=== PATIENT | male | born 1930 | race Caucasian/White ===

== ENCOUNTER 2016-10-31 00:41 | Observation (INO) | payer OTHER, BC ==
[~2016-10-31] VITALS: Ht 172.7 cm; Wt 61.9 kg
--- NOTE | 2016-10-31 01:03 | EMERGENCY ROOM VISIT NOTE ---
History Report prepared by Jeffrey: Lenard Montejo Under the Supervision of: Dr. Joan Lemon D.O. First contact with patient: 00:47 Stated Complaint: BRADYCARDIA History of Present Illness The patient is an 86 year old male who presents to the Emergency Room after a fall that occurred prior to arrival at [facility]. EMS states that patient fell at [facility] and was found on his knees. The patient reports that he is not in any pain. He denies hitting his head and feeling weak. The patient notes that he does not know how he fell. The patient's medical records states that he was seen at [facility] because he developed right-sided weakness, right-sided facial droop, and dysarthria. They report that patient was administered t-PA, and went into atrial fibrillation. Records note that he was put on Coumadin, and his INR today was 1.57. HPI is limited secondary to the patient's dysarthria. Source of History: patient, transfer records History Limited By: other (dysarthria) Review of Systems ROS is limited secondary to the patient's dysarthria. Past Medical & Surgical Medical Problems: (1) CAD (coronary artery disease) (2) CHF (congestive heart failure) (3) HTN (hypertension) (4) Hx-TIA (transient ischemic attack) (5) Ischemic cardiomyopathy (6) Peripheral vascular disease Surgical Problems: (1) S/P CABG x 3 Family History Patient reports no known family medical history. Social History Housing Status: assisted living Current/Historical Medications Scheduled Atorvastatin (Lipitor), 40 MG PO DAILY Enoxaparin (Lovenox), 60 MG SQ Q12H Fluoxetine Hcl (Pmdd) (Fluoxetine), 20 MG PO DAILY Metoprolol Succ (Toprol Xl) (Toprol-Xl), 25 MG PO BID Nitroglycerin (Nitrostat), 0.4 MG UT PRN Warfarin Sod (Coumadin), 5 MG PO DAILY Allergies Coded Allergies: No Known Allergies (Unverified , 10/31/16) Physical Exam Vital Signs Date Time Temp Pulse Resp B/P (MAP) Pulse Ox O2 Delivery O2 Flow Rate FiO2 10/31/16 05:30 51 18 144/73 92 Room Air 10/31/16 04:51 50 10/31/16 04:47 50 18 144/71 99 Room Air 10/31/16 04:16 50 18 156/80 98 Room Air 10/31/16 03:31 48 18 129/72 94 Room Air 10/31/16 02:39 51 18 147/72 99 Room Air 10/31/16 02:11 49 18 150/79 96 Room Air 10/31/16 01:42 60 18 136/72 93 Room Air 10/31/16 01:16 58 18 153/83 94 Room Air 10/31/16 01:02 52 10/31/16 00:45 94 Room Air 10/31/16 00:45 37.5 52 24 147/58 94 Room Air 10/31/16 00:45 94 Room Air Physical Exam HEENT: Head - normocephalic and atraumatic. Pupils are equal, round, and reactive to light. Extraocular eye muscles are intact and sclera are anicteric. Ears - bilaterally patent canals with noninjected tympanic membranes and no evidence of hemotympanum. Nose - moist nasal mucosa without discharge. Mouth - moist buccal mucosa. Oropharynx is nonerythematous and there is no tonsillar exudate or edema noted. Neck: Supple; no JVD, nuchal rigidity, cervical lymphadenopathy, or auscultated bruits. Heart: Bradycardic rate and irregular rhythm. There is a normal S1 and S2 with no murmurs, clicks, or gallops appreciated. Lungs: Clear to auscultation bilaterally with no wheezes, rales, or rhonchi. Abdomen: Soft, completely nontender, nondistended, with good bowel sounds. There are no palpable pulsatile masses or hepatosplenomegaly. There is no guarding, rigidity, or rebound noted. Extremities: No evidence of cyanosis, clubbing, or edema. There are easily palpable peripheral pulses. Neuro: Alert and oriented. Easily able to nod yes or no. At times, gives the appropriate one word answer. 5/5 in the upper left extremity, 2/5 in the left lower extremity, 0/5 in right upper and lower extremities. Medical Decision & Procedures ER Provider Diagnostic Interpretation: X-ray results as stated below per interpretation by me: Portable view one chest X-ray: diffuse pulmovascular congestion Laboratory Results 10/31/16 01:12 Red Blood Count 3.72, Mean Corpuscular Volume 92.2, Mean Corpuscular Hemoglobin 31.5, Mean Corpuscular Hemoglobin Concent 34.1, Mean Platelet Volume 9.4, Neutrophils (%) (Auto) 69.1, Lymphocytes (%) (Auto) 13.3, Monocytes (%) (Auto) 13.4, Eosinophils (%) (Auto) 3.2, Basophils (%) (Auto) 0.2, Neutrophils # (Auto ) 7.73, Lymphocytes # (Auto) 1.49, Monocytes # (Auto) 1.50, Eosinophils # (Auto ) 0.36, Basophils # (Auto) 0.02 10/31/16 01:12 Test 10/31/16 01:12 White Blood Count 11.19 K/uL (4.8-10.8) Red Blood Count 3.72 M/uL (4.7-6.1) Hemoglobin 11.7 g/dL (14.0-18.0) Hematocrit 34.3 % (42-52) Mean Corpuscular Volume 92.2 fL (80-100) Mean Corpuscular Hemoglobin 31.5 pg (25-34) Mean Corpuscular Hemoglobin Concent 34.1 g/dl (32-36) Platelet Count 253 K/uL (130-400) Mean Platelet Volume 9.4 fL (7.4-10.4) Neutrophils (%) (Auto) 69.1 % Lymphocytes (%) (Auto) 13.3 % Monocytes (%) (Auto) 13.4 % Eosinophils (%) (Auto) 3.2 % Basophils (%) (Auto) 0.2 % Neutrophils # (Auto) 7.73 K/uL (1.4-6.5) Lymphocytes # (Auto) 1.49 K/uL (1.2-3.4) Monocytes # (Auto) 1.50 K/uL (0.11-0.59) Eosinophils # (Auto) 0.36 K/uL (0-0.5) Basophils # (Auto) 0.02 K/uL (0-0.2) RDW Standard Deviation 44.7 fL (36.4-46.3) RDW Coefficient of Variation 13.3 % (11.5-14.5) Immature Granulocyte % (Auto) 0.8 % Immature Granulocyte # (Auto) 0.09 K/uL (0.00-0.02) Prothrombin Time 23.4 SECONDS (9.0-12.0) Prothromb Time International Ratio 2.1 (0.9-1.1) Activated Partial Thromboplast Time 34.8 SECONDS (21.0-31.0) Partial Thromboplastin Ratio 1.3 Anion Gap 5.0 mmol/L (3-11) Estimated GFR () 69.1 Estimated GFR (Non- 59.6 BUN/Creatinine Ratio 31.8 (10-20) Calcium Level 8.8 mg/dl (8.5-10.1) Magnesium Level 2.0 mg/dl (1.8-2.4) Total Bilirubin 0.3 mg/dl (0.2-1) Direct Bilirubin < 0.1 mg/dl (0-0.2) Aspartate Amino Transf (AST/SGOT) 23 U/L (15-37) Alanine Aminotransferase (ALT/SGPT) 35 U/L (12-78) Alkaline Phosphatase 73 U/L (45-117) Total Creatine Kinase 40 U/L (39-308) Creatine Kinase MB 0.7 ng/ml (0.5-3.6) Creatine Kinase MB Ratio 1.7 (0-3.0) Total Protein 5.7 gm/dl (6.4-8.2) Albumin 2.4 gm/dl (3.4-5.0) Thyroid Stimulating Hormone (TSH) 2.320 uIu/ml (0.300-4.500) Laboratory results per my review. ECG Indication: bradycardia Rate (beats per minute): 52 Rhythm: sinus bradycardia Findings: PVC, T-wave inversion (Inferior and Lateral) ED Course 0051: The patient was evaluated in room B07. A complete history and physical examination were performed. Nursing notes and previous medical records from [facility] were reviewed. IV lock was established and labs were drawn as above. A twelve-lead EKG was obtained. The patient was observing the technical engineer and pulse oximeter. 0223: I attempted to reevaluate the patient, but he was asleep. 0318: I discussed the patient's case [facility] Swanson[facility] The patient will be evaluated for further treatment and management. 0329: Upon reevaluation, I discussed findings and results with him. He comprehends what I am telling him by nodding. Medical Decision The patient is an 86 year old male who presents to the ED after a fall. Differential diagnosis includes symptomatic bradycardia, cardiac dysrhythmia, trauma, hypoglycemia, electrolyte imbalance. Labs results show: WBC of 11.1, hemoglobin of 11.7, BUN of 35, creatinine of 1.1 , normal glucose, normal LFTs, troponin of 0.061, INR of 2.1 The patient was noted be significantly bradycardic. Since he is hemiparetic on the right side, it is unlikely that he got out of bed to walk but most likely slid out of bed to the ground. He had no obvious signs of trauma. I [facility] and [facility] will evaluate for further management. Medication Reconcilliation Current Medication List: was personally reviewed by me Blood Pressure Screening Patient's blood pressure: Elevated blood pressure Monitored by inpatient care. Consults Time Called: [phone] Consulting Physician: Dr. Swanson [facility] Returned Call: [phone] I discussed the patient's case with Dr[facility] Swanson [facility] The patient will be evaluated for further treatment and management. Impression Primary Impression: Bradycardia Additional Impression: Accident due to mechanical fall without injury Scribe Attestation The scribe's documentation has been prepared under my direction and personally reviewed by me in its entirety. I confirm that the note above accurately reflects all work, treatment, procedures, and medical decision making performed by me. Departure Information Dispostion Being Evaluated By Hospitalist Referrals [facility] (PCP) Problem Qualifiers
[2016-10-31 01:26] LABS: BASO % 0.2 %; BASO ABS # 0.02 K/uL (0-0.2); COMPLETE YES; EOS % 3.2 %; HEMATOCRIT 34.3 % (42-52); IG% 0.8 %; LYMPH % 13.3 %; LYMPH ABS # 1.49 K/uL (1.2-3.4); MEAN CELL VOLUME 92.2 fL (80-100); MEAN CORPUSCULAR HEMOGLOBIN 31.5 pg (25-34); MEAN CORPUSCULAR HGB CONC 34.1 g/dl (32-36); MEAN PLATELET VOLUME 9.4 fL (7.4-10.4); MONO % 13.4 %; NEUT % 69.1 %; PLATELET COUNT 253 K/uL (130-400); RED BLOOD COUNT 3.72 M/uL (4.7-6.1); WHITE BLOOD COUNT 11.19 K/uL (4.8-10.8)
[2016-10-31 01:36] LABS: INR 2.1 (0.9-1.1); PARTIAL THROMBOPLASTIN RATIO 1.3; PROTHROMBIN TIME (PATIENT) 23.4 SECONDS (9.0-12.0)
[2016-10-31 01:45] LABS: BLOOD UREA NITROGEN 35 mg/dl (7-18); GLUCOSE 93 mg/dl (70-99)
[2016-10-31 01:46] LABS: ALT/SGPT 35 U/L (12-78); AST/SGOT 23 U/L (15-37); BUN/CREATININE RATIO 31.8 (10-20); CALCIUM 8.8 mg/dl (8.5-10.1); CARBON DIOXIDE 27 mmol/L (21-32); CHLORIDE 111 mmol/L (98-107); POTASSIUM 4.1 mmol/L (3.5-5.1); SODIUM 143 mmol/L (136-145)
[2016-10-31 01:57] LABS: ALKALINE PHOSPHATASE 73 U/L (45-117); CKMB/CK RATIO 1.7 (0-3.0)
[2016-10-31] MEDS ORDERED: CMD5 PO (02:02)
[2016-10-31] MEDS ORDERED: METO25TA3 PO (02:15)
[2016-10-31] MEDS ORDERED: FLUO20CA20 PO (02:17)
[2016-10-31] MEDS ORDERED: ATOR-24 PO (02:18)
[2016-10-31] MEDS ORDERED: ENOX60IN SQ (02:19)
[2016-10-31] MEDS ORDERED: NTRGSL/4 UT (02:21)
[2016-10-31] MEDS ORDERED: HYDROmorphone INJ 0.5 MG/0.5 ML SYR IV PRN (06:30)
[2016-10-31] MEDS ORDERED: ACETAMINOPHEN 325 MG TAB PO PRN (06:30)
[2016-10-31] MEDS ORDERED: ONDANSETRON INJ 2 MG/ML 2 ML VIAL IV PRN (06:30)
[2016-10-31] MEDS ORDERED: NITROGLYCERIN 0.4 MG SL PER TAB CHARGE SL PRN (06:30)
[2016-10-31] MEDS ORDERED: OXYCODONE/ACETAMINOPHEN 5-325 TAB PO PRN (06:30)
[2016-10-31 06:33] VITALS: O2SAT 94
[2016-10-31 06:44] VITALS: BP 116/48; PULSE 52; TEMP 36.9; O2SAT 97; Ht 172.7 cm; Wt 61.9 kg
--- NOTE | 2016-10-31 08:14 | DIAGNOSTIC IMAGING REPORT ---
CHEST ONE VIEW PORTABLE CLINICAL HISTORY: Bradycardia. COMPARISON STUDY: No previous studies for comparison. FINDINGS: Lung volumes are at the lower limits of normal. There are median sternotomy wires. Moderate enlargement of the cardiac silhouette is noted. There is pulmonary vascular congestion without overt pulmonary edema. There is a possible 2.7 cm opacity within the periphery of the left lower lung. There may be postoperative findings within the left lower lung as well. There is no pneumothorax or pleural effusion. There is no lobar consolidation. IMPRESSION: 1. Pulmonary vascular congestion without overt edema. 2. Moderate enlargement of the cardiac silhouette. 3. Possible 2.7 cm peripheral opacity within the left lower lung. This may reflect artifact, minimal airspace opacity, atelectasis, post surgical change or pulmonary nodule. Follow-up PA and lateral chest radiographs are recommended. Electronically signed by: Mendel Shepard M.D. 10/31/2016 8:13 AM Dictated Date/Time: 10/31/2016 8:08 AM
[2016-10-31 08:23] LABS: FERRITIN 272.3 ng/ml (8.0-388.0)
[2016-10-31] MEDS: FLUOXETINE HCL 20 MG CAP PO SCH (09:09)
[2016-10-31] MEDS: METOPROLOL TARTRATE 25 MG TAB PO SCH ×2 (09:09→20:47)
[2016-10-31] MEDS: ATORVASTATIN 40 MG TAB PO SCH (09:09)
--- NOTE | 2016-10-31 10:29 | DIAGNOSTIC IMAGING REPORT ---
CT OF THE HEAD WITHOUT CONTRAST CLINICAL HISTORY: Fall. COMPARISON STUDY: No previous studies for comparison. CT DOSE: 614.27 mGy.cm TECHNIQUE: Helical axial images of the head were obtained without IV contrast. Automated exposure control was utilized for the study. A dose lowering technique was utilized adhering to the principles of ALARA. FINDINGS: No acute intracranial hemorrhage, midline shift or mass effect is present. Basilar cisterns are patent. There is mild atrophy. White matter hypodensities suggest moderate small vessel disease. There are multiple old lacunar infarcts within the bilateral basal ganglia. There are no findings to suggest acute dural sinus thrombosis or acute territorial infarct. There is extensive intracranial vascular calcification. No calvarial fracture is identified. IMPRESSION: 1. No acute intracranial findings. 2. No calvarial fracture. Electronically signed by: Mendel Shepard M.D. 10/31/2016 10:28 AM Dictated Date/Time: 10/31/2016 10:26 AM
[2016-10-31 11:22] VITALS: BP 130/72
[2016-10-31 11:31] LABS: URINE APPEARANCE CLEAR (CLEAR); URINE BILIRUBIN NEG (NEG); URINE COLOR YELLOW; URINE EPITHELIAL CELL AUTO 0-5 /lpf (0-5); URINE NITRITE POS (NEG); URINE SPECIFIC GRAVITY 1.023 (1.000-1.030); UROBILINOGEN NEG (NEG)
[2016-10-31 11:34] LABS: MANUAL MICROSCOPIC REQUIRED? NO; REVIEW REQ? NO
--- NOTE | 2016-10-31 11:58 | HISTORY & PHYSICAL EXAMINATION ---
DATE OF ADMISSION: 10/31/2016 PRIMARY CARE DOCTOR: Rachele Munroe PA-C. CHIEF COMPLAINT: Fall, bradycardia as per records. HISTORY OF PRESENT ILLNESS: History obtained from records. Unable to obtain history from the patient secondary to aphasia, possible hearing impairment. 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 Last 10/23/2016, the patient was noted to have trouble with speaking, could not get up, had right-sided weakness. Patient was brought to [facility], given TPA for CVA. Transferred to [facility] for possible interventional management. MRI of the brain showed left paramedian isabel ischemic infarct. Patient developed AFib with RVR during admission. Started on Lopressor, Lovenox-Coumadin bridge. 2D echo showed large sized septal, anteroseptal and inferior wall motion abnormalities with hypokinesis, reduced EF 44%. Patient discharged to rehab last 10/28/2016. As per rehab notes, the patient slid from bed today. No witnessed syncopal events. Patient denies chest pain, shortness of breath. Patient noted to be bradycardic at 40. Last night as per rehab staff, heart rate 50s. Patient brought to the Emergency Room, currently comfortable. MEDICAL HISTORY: As above. SURGERIES: CABG. HOME MEDICATIONS: Include Lipitor, Lovenox, fluoxetine, Toprol, Nitrostat, and Coumadin. ALLERGIES: No known drug allergies. FAMILY HISTORY: Could not be obtained. PERSONAL AND SOCIAL HISTORY: Past tobacco abuse, was living with his son prior to stroke, retired [employer]. REVIEW OF SYSTEMS: Could not be obtained secondary to aphasia. PHYSICAL EXAMINATION: VITAL SIGNS: Blood pressure was noted to be 147/58, pulse rate 49, RR 18, temperature 36.9, sats 92 on room air. GENERAL: Noted to be comfortable, no respiratory distress, aphasic. SKIN: Pallor. HEENT: Pale palpebral conjunctivae. Dry mucosa. Facial asymmetry. NECK: No JVD. Supple. CHEST: Decreased effort. HEART: Bradycardic. ABDOMEN: Soft. NT EXTREMITIES: No edema, no tenderness. NEUROLOGIC: Aphasia, dense hemiparesis R, acial asymmetry. Otherwise, no gross focality, LABS: Hemoglobin was noted to be 11.7, hematocrit 34.2, white cell count is 11.19, and platelets 253. Sodium noted to be 140, potassium 4.1, chloride 111, CO2 27, BUN 31, creatinine 1.1, glucose was noted to be 93. Troponin was 0.06. INR 2.1. Chest x-ray, as per my interpretation, minimal congestion and cardiomegaly. EKG as per my interpretation; rate 50, sinus bradycardia, T-wave inversion on the inferolateral leads, PRWP. CT of the head initial read, multiple old lacunar infarcts basal ganglia, no acute intracranial findings. ASSESSMENT: 1. Bradycardia CR as low as 40 at rehabilitation facility following fall from bed unclear clinical significance for now. 2. Hx PAF, px NSR, bradycardic INR therapeutic. 3. troponin elevation. possibly from mildly BP elevation following the fall. Patient denies chest pain or shortness of breath 4. Chronic systolic heart failure secondary to ischemic cardiomyopathy. EF 40- 44% mild congestion on x-ray. 5. History of coronary artery disease, status post coronary artery bypass grafting, 6. Recent cerebrovascular accident, status post TPA. 7. Anemia, decreasing hemoglobin following recent confinement Hemoglobin initially 14 during [facility] confinement down to 11 on discharge Possibility dilutional no obvious source of bleeding for now 8. History of peripheral vascular disease. 9. Past tobacco abuse. PLAN: Observation PCU 2D echo RE bradycardia decrease home beta marion maintenance dose. Follow troponin. Anemia workup, transfuse pRBC if hemoglobin less than 8. (hx CAD). DVT prophylaxis, Coumadin INR 2-3. DNR as per son/POA, Mr. Steve Kevin. He requests updates from providers at [phone]. Secondary contact is Miss Chyna Kevin at [phone]. FLORIN
[2016-10-31 12:24] LABS: HEMATOCRIT 33.4 % (42-52)
[2016-10-31 16:28] VITALS: BP 120/75; PULSE 50; TEMP 37; O2SAT 97
--- NOTE | 2016-10-31 17:00 | ECHOCARDIOGRAM REPORT ---
*NOTICE TO RECEIVING DEMOCRAT AGENCY This information is strictly Confidential and protected under [place] law. [place] law prohibits you from making any further disclosure of this information unless further disclosure is expressly permitted by the written consent of the person to whom it pertains or is authorized by law. A general authorization for the release of medical or other information is not sufficient for this purpose. Hospital accepts no responsibility if the information is made available to any other person, INCLUDING THE PATIENT. Interpretation Summary * Name: COSMO OH Study Date: 10/31/2016 01:08 PM BP: 116/48 mmHg * Patient Location: C.2T\S\S240\S\2 HR: 52 * : 1930 (M/d/yyy) Gender: Male Height: 68 in * Age: 86 yrs Ethnicity: CA Weight: 140 lb * Ordering Physician: Frank Swanson * Referring Physician: Phillip Gerber * Performed By: Heaven Tejada * * Reason For Study: BRADYCARDIA * BSA: 1.8 m2 * The study was technically limited. * There is no comparison study available. * -- Conclusions -- * Ejection Fraction = 50-55%. * There is a moderate sized wall motion abnormality involving the inferior septum, anterior septum and apical inferior wall with hypokinesis to akinesis of the segments. * Aortic valve sclerosis moderate, without significant aortic valvular stenosis. * There is moderate mitral annular calcification. * There is mild mitral regurgitation. * There is mild tricuspid regurgitation. Procedure Details * A complete two-dimensional transthoracic echocardiogram was performed (2D, M-mode, Doppler and color flow Doppler). * The study was technically difficult. * There were technical limitations due to patient'spoor positioning * A contrast injection of Definity was performed to improve assessment of LV function. * Contrast was injected into an intravenous site in the left arm. * One vial of Definity ultrasound contrast was diluted in normal saline to a total volume of 10 ml. A total of '2' ml of solution was administered during imaging. * Lot # [id number] of Definity utilized for procedure. * Expiration date 10/30. * The attending nurse who injected the contrast agent was DANIELLE DE LA VEGA RN. Left Ventricle * The left ventricle is normal in size. * There is no thrombus. * There is mild concentric left ventricular hypertrophy. * Ejection Fraction = 50-55%. * There is a moderate sized wall motion abnormality involving the inferior septum, anterior septum and apical inferior wall with hypokinesis to akinesis of the segments. Right Ventricle * The right ventricle is not well visualized. Atria * The left atrium is moderately dilated. * The right atrium is mildly dilated. Mitral Valve * There is moderate mitral annular calcification. * There is no mitral valve stenosis. * There is mild mitral regurgitation. Tricuspid Valve * The tricuspid valve is not well visualized. * There is no tricuspid stenosis. * There is mild tricuspid regurgitation. Aortic Valve * Aortic valve sclerosis moderate, without significant aortic valvular stenosis. * The aortic valve is trileaflet. * Mild aortic regurgitation. Pulmonic Valve * The pulmonary valve is not well seen, but the Doppler examination is normal without significant regurgitation or stenosis. Great Vessels * Mild aortic root dilatation. Pericardium/Pleural * There is no pericardial effusion. Left Ventricular Diastolic Function * Grade I diastolic dysfunction, (abnormal relaxation pattern). MMode 2D Measurements and Calculations IVSd 1.5 cm IVSs 1.5 cm LVIDd 4.7 cm LVIDs 3.5 cm LVPWd 1.2 cm LVPWs 2.0 cm IVS/LVPW 1.2 FS 26.8 % EDV(Teich) 104.7 ml ESV(Teich) 50.0 ml EF(Teich) 52.2 % EDV(cubed) 106.8 ml ESV(cubed) 41.9 ml EF(cubed) 60.7 % % IVS thick 2.8 % % LVPW thick 64.0 % LV mass(C)d 258.8 grams LV mass(C)dI 147.4 grams/m\S\2 LV mass(C)s 255.0 grams LV mass(C)sI 145.2 grams/m\S\2 SV(Teich) 54.7 ml SI(Teich) 31.1 ml/m\S\2 SV(cubed) 64.9 ml SI(cubed) 36.9 ml/m\S\2 ACS 0.91 cm LA dimension 4.2 cm asc Aorta Diam 3.8 cm LVOT diam 2.1 cm LVOT area 3.5 cm\S\2 LVAd ap4 28.6 cm\S\2 LVLd ap4 7.5 cm EDV(MOD-sp4) 93.5 ml EDV(sp4-el) 93.2 ml LVAs ap4 19.2 cm\S\2 LVLs ap4 7.1 cm ESV(MOD-sp4) 43.1 ml ESV(sp4-el) 44.1 ml EF(MOD-sp4) 53.9 % EF(sp4-el) 52.7 % LVAd ap2 31.5 cm\S\2 LVLd ap2 7.4 cm EDV(MOD-sp2) 114.4 ml EDV(sp2-el) 114.2 ml LVAs ap2 19.5 cm\S\2 LVLs ap2 6.1 cm ESV(MOD-sp2) 53.0 ml ESV(sp2-el) 52.9 ml EF(MOD-sp2) 53.7 % EF(sp2-el) 53.7 % LVLd %diff -1.20 % EDV(MOD-bp) 103.1 ml LVLs %diff -15.63 % ESV(MOD-bp) 49.9 ml EF(MOD-bp) 51.6 % SV(MOD-sp4) 50.3 ml SI(MOD-sp4) 28.7 ml/m\S\2 SV(MOD-sp2) 61.4 ml SI(MOD-sp2) 35.0 ml/m\S\2 SV(MOD-bp) 53.2 ml SI(MOD-bp) 30.3 ml/m\S\2 SV(sp4-el) 49.1 ml SI(sp4-el) 27.9 ml/m\S\2 SV(sp2-el) 61.3 ml SI(sp2-el) 34.9 ml/m\S\2 Doppler Measurements and Calculations MV E max betty 79.9 cm/sec MV A max betty 83.5 cm/sec MV E/A 0.96 MV dec time 0.19 sec Ao V2 max 173.6 cm/sec Ao max PG 12.1 mmHg Ao max PG (full) 7.6 mmHg СВЕТЛАНА(V,A) 2.1 cm\S\2 СВЕТЛАНА(V,D) 2.1 cm\S\2 AI max betty 315.7 cm/sec AI max PG 39.9 mmHg AI dec slope 139.4 cm/sec\S\2 AI P1/2t 663.3 msec LV V1 max PG 4.5 mmHg LV V1 max 105.8 cm/sec MR max betty 525.4 cm/sec MR max PG 110.6 mmHg PA V2 max 57.2 cm/sec PA max PG 1.3 mmHg TR max betty 249.0 cm/sec
--- NOTE | 2016-10-31 19:03 | Progress Note ---
Internal Med Progress Note Date of Service: Oct 31, 2016. Provider Documentation: resting comfortably. denies any complaints. Can tell his name. Afebrile. hemodynamics stable. presented with fall. Ct head no acute findings. b marion dose reduced for bradycardia. Will monitor. ASSESSMENT & PLAN: [] DVT PROPHYLAXIS [] DISPOSITION [] Vital Signs: Date Time Temp Pulse Resp B/P (MAP) Pulse Ox O2 Delivery O2 Flow Rate FiO2 10/31/16 16:28 37.0 50 16 120/75 (90) 97 Room Air 10/31/16 16:00 Room Air 10/31/16 12:00 Room Air 10/31/16 11:22 130/72 (91) 10/31/16 08:00 Room Air 10/31/16 06:44 36.9 52 20 116/48 97 Room Air 10/31/16 06:33 52 18 146/83 94 10/31/16 06:17 56 18 137/64 98 Room Air 10/31/16 05:30 51 18 144/73 92 Room Air 10/31/16 04:51 50 10/31/16 04:47 50 18 144/71 99 Room Air 10/31/16 04:16 50 18 156/80 98 Room Air 10/31/16 03:31 48 18 129/72 94 Room Air 10/31/16 02:39 51 18 147/72 99 Room Air 10/31/16 02:11 49 18 150/79 96 Room Air 10/31/16 01:42 60 18 136/72 93 Room Air 10/31/16 01:16 58 18 153/83 94 Room Air 10/31/16 01:02 52 10/31/16 00:45 94 Room Air 10/31/16 00:45 37.5 52 24 147/58 94 Room Air 10/31/16 00:45 94 Room Air Lab Results: Results Past 24 Hours Test 10/31/16 01:12 10/31/16 06:09 10/31/16 07:21 10/31/16 11:15 Range/Units White Blood Count 11.19 4.8-10.8 K/uL Red Blood Count 3.72 4.7-6.1 M/uL Hemoglobin 11.7 14.0-18.0 g/dL Hematocrit 34.3 42-52 % Mean Corpuscular Volume 92.2 80-100 fL Mean Corpuscular Hemoglobin 31.5 25-34 pg Mean Corpuscular Hemoglobin Concent 34.1 32-36 g/dl Platelet Count 253 130-400 K/uL Mean Platelet Volume 9.4 7.4-10.4 fL Neutrophils (%) (Auto) 69.1 % Lymphocytes (%) (Auto) 13.3 % Monocytes (%) (Auto) 13.4 % Eosinophils (%) (Auto) 3.2 % Basophils (%) (Auto) 0.2 % Neutrophils # (Auto) 7.73 1.4-6.5 K/uL Lymphocytes # (Auto) 1.49 1.2-3.4 K/uL Monocytes # (Auto) 1.50 0.11-0.59 K/uL Eosinophils # (Auto) 0.36 0-0.5 K/uL Basophils # (Auto) 0.02 0-0.2 K/uL RDW Standard Deviation 44.7 36.4-46.3 fL RDW Coefficient of Variation 13.3 11.5-14.5 % Immature Granulocyte % (Auto) 0.8 % Immature Granulocyte # (Auto) 0.09 0.00-0.02 K/uL Prothrombin Time 23.4 9.0-12.0 SECONDS Prothromb Time International Ratio 2.1 0.9-1.1 Activated Partial Thromboplast Time 34.8 21.0-31.0 SECONDS Partial Thromboplastin Ratio 1.3 Sodium Level 143 136-145 mmol/L Potassium Level 4.1 3.5-5.1 mmol/L Chloride Level 111 98-107 mmol/L Carbon Dioxide Level 27 21-32 mmol/L Anion Gap 5.0 3-11 mmol/L Blood Urea Nitrogen 35 7-18 mg/dl Creatinine 1.10 0.60-1.40 mg/dl Estimated GFR () 69.1 Estimated GFR (Non- 59.6 BUN/Creatinine Ratio 31.8 10-20 Random Glucose 93 70-99 mg/dl Calcium Level 8.8 8.5-10.1 mg/dl Magnesium Level 2.0 1.8-2.4 mg/dl Total Bilirubin 0.3 0.2-1 mg/dl Direct Bilirubin < 0.1 0-0.2 mg/dl Aspartate Amino Transf (AST/SGOT) 23 15-37 U/L Alanine Aminotransferase (ALT/SGPT) 35 12-78 U/L Alkaline Phosphatase 73 45-117 U/L Total Creatine Kinase 40 39-308 U/L Creatine Kinase MB 0.7 0.5-3.6 ng/ml Creatine Kinase MB Ratio 1.7 0-3.0 Troponin I 0.061 0.054 0-0.045 ng/ml Total Protein 5.7 6.4-8.2 gm/dl Albumin 2.4 3.4-5.0 gm/dl Thyroid Stimulating Hormone (TSH) 2.320 0.300-4.500 uIu/ml Absolute Reticulocyte Count 0.04 0.02-0.10 10^6/uL Percent Reticulocyte Count 1.3 0.5-2.0 % Iron Level 52 35-175 mcg/dl Total Iron Binding Capacity 213 250-450 mcg/dl Transferrin 157 200-360 mg/dl Transferrin % Saturation 24 20-50 % Ferritin 272.3 8.0-388.0 ng/ml Vitamin B12 Level 955 211-911 pg/mL Folate 6.61 >5.38 ng/mL Urine Color YELLOW Urine Appearance CLEAR CLEAR Urine pH 6.0 4.5-7.5 Urine Specific [place] 1.023 1.000-1.030 Urine Protein NEG NEG Urine Glucose (UA) NEG NEG Urine Ketones NEG NEG Urine Occult Blood NEG NEG Urine Nitrite POS NEG Urine Bilirubin NEG NEG Urine Urobilinogen NEG NEG Urine Leukocyte Esterase MODERATE NEG Urine WBC (Auto) >30 0-5 /hpf Urine RBC (Auto) 0-4 0-4 /hpf Urine Hyaline Casts (Auto) 5-10 0-5 /lpf Urine Epithelial Cells (Auto) 0-5 0-5 /lpf Urine Bacteria (Auto) 4+ NEG Test 10/31/16 11:45 Range/Units Hemoglobin 11.6 14.0-18.0 g/dL Hematocrit 33.4 42-52 % Microbiology Results 10/31/16 MRSA DNA Surveillance Screen - Final, Complete Specimen Negative for MRSA by DNA Probe
[2016-10-31 19:30] VITALS: BP 113/73; PULSE 52; TEMP 36.9; O2SAT 92
[2016-11-01 00:01] VITALS: BP 110/60; PULSE 51; TEMP 36.4; O2SAT 98
[2016-11-01 04:07] VITALS: BP 122/68; PULSE 48; TEMP 36.4; O2SAT 98
[2016-11-01 06:19] LABS: BASO % 0.2 %; BASO ABS # 0.02 K/uL (0-0.2); COMPLETE YES; EOS % 3.3 %; HEMATOCRIT 32.4 % (42-52); IG% 1.2 %; LYMPH % 15.5 %; LYMPH ABS # 1.68 K/uL (1.2-3.4); MEAN CELL VOLUME 92.3 fL (80-100); MEAN CORPUSCULAR HEMOGLOBIN 31.9 pg (25-34); MEAN CORPUSCULAR HGB CONC 34.6 g/dl (32-36); MEAN PLATELET VOLUME 9.4 fL (7.4-10.4); MONO % 11.5 %; NEUT % 68.3 %; PLATELET COUNT 251 K/uL (130-400); RED BLOOD COUNT 3.51 M/uL (4.7-6.1); WHITE BLOOD COUNT 10.81 K/uL (4.8-10.8)
[2016-11-01 06:31] LABS: INR 2.4 (0.9-1.1); PROTHROMBIN TIME (PATIENT) 26.8 SECONDS (9.0-12.0)
[2016-11-01 06:56] LABS: BUN/CREATININE RATIO 34.3 (10-20); CALCIUM 8.8 mg/dl (8.5-10.1); CREATININE 1.1 mg/dl (0.60-1.40)
[2016-11-01 07:35] VITALS: BP 134/69; PULSE 51; TEMP 37.1; O2SAT 95
[2016-11-01] MEDS: ATORVASTATIN 40 MG TAB PO SCH (07:45)
[2016-11-01] MEDS: METOPROLOL TARTRATE 25 MG TAB PO SCH ×2 (07:46→21:00)
[2016-11-01] MEDS: FLUOXETINE HCL 20 MG CAP PO SCH (07:46)
[2016-11-01 11:28] VITALS: BP 135/68; PULSE 57; TEMP 37; O2SAT 98
[2016-11-01 15:02] VITALS: BP_SYST 136; BP_SYST 138; BP_DIAS 82; BP_DIAS 83; PULSE 53; TEMP 36.8; O2SAT 93
--- NOTE | 2016-11-01 17:22 | CARDIOLOGY CONSULTATION ---
DATE OF CONSULTATION: 11/01/2016 REFERRING PHYSICIAN: Dr. Sujit Carpenter. REASON FOR CONSULTATION: Bradycardia. HISTORY OF PRESENT ILLNESS: Mr. 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 He was subsequently discharged to [facility]. During his hospitalization, he was noted to have atrial fibrillation. He was prescribed beta-marion and Coumadin. While at rehab, patient was noted to have a fall at [facility]. He was noted to have bradycardia with heart rates into the 40s. He was admitted to the progressive care unit. Telemetry demonstrates sinus bradycardia with intermittent PVCs as well as periods of ventricular bigeminy. Minimum heart rate recorded at 39 beats per minute. The patient is aphasic and unable to offer history. No evidence of recurrent atrial fibrillation. Blood pressure has been stable. Resting 2D transthoracic echo demonstrates septal and inferior scar with an ejection fraction of 50%. The patient otherwise appears comfortable and in no acute distress. REVIEW OF SYSTEMS: The pertinent positives noted per HPI. A comprehensive 10-system review could not be completed due to patient's neurologic status. Otherwise per review of the chart, there are no significant findings. PAST MEDICAL HISTORY: 1. Coronary artery disease with prior coronary artery bypass grafting x3. 2. Congestive heart failure. 3. Hypertension. 4. TIA. 5. Pontine CVA. 6. Ischemic cardiomyopathy. 7. Peripheral vascular disease. 8. Atrial fibrillation as well as premature ventricular complexes. PAST SURGICAL HISTORY: 1. Coronary bypass grafting x3. 2. Cardiac catheterization. SOCIAL HISTORY: He is , lives in assisted living, former tobacco abuse noted. FAMILY HISTORY: Negative for premature CAD or sudden cardiac ; however, noncontributory, given patient's advanced age. ALLERGIES: No known drug allergies. CURRENT OUTPATIENT MEDICATIONS: 1. Atorvastatin 40 mg daily. 2. Lovenox 60 mg subQ q. 12. 3. Coumadin 5 mg daily. 4. Nitroglycerin sublingual as needed. 5. Toprol-XL 25 mg twice daily. LABORATORY DATA: ECG demonstrates sinus bradycardia with occasional premature ventricular complexes, right bundle branch block. CT of the head demonstrates no acute intracranial findings. Chest x-ray: Pulmonary vascular congestion without overt edema, possible 2.7 cm peripheral opacity within the left lower lung. LABORATORY DATA: White blood cell count is 10.81, hemoglobin is 11.2, platelet count is 251. Sodium 143, potassium 4.0, chloride 101, CO2 29, BUN is 38, creatinine is 1.10. Troponin 0.054. INR is 2.4. Urinalysis positive for nitrites. PHYSICAL EXAMINATION: VITAL SIGNS: Temperature is 37.1 degrees centigrade, pulse 51 beats per minute and regular, respiratory rate is 18 breaths per minute, blood pressure 134/69, SaO2 is 95% on room air. GENERAL: Aphasic, NAD. HEENT: Mucous membranes moist. No scleral icterus. Conjunctivae pink. NECK: Supple. There is no JVD, no HJR, no carotid bruit. HEART: Regular with ectopy. Normal S1 and S2. 1/6 systolic ejection murmur appreciated at the cardiac base. LUNGS: Demonstrate clear breath sounds bilateral. ABDOMEN: Soft, nontender. No rebound or guarding. Normal bowel sounds. EXTREMITIES: Demonstrate no clubbing, cyanosis, or edema. NEUROLOGIC: Demonstrates aphasia, right-sided paralysis. FINAL IMPRESSION: 1. Sinus bradycardia with occasional premature ventricular complexes, as well as periods of ventricular bigeminy. The patient's resting sinus rate is bradycardic. It is unclear whether this is related to his fall. He does not appear symptomatic during this hospitalization thus far with heart rates in the 40s and 50s. Agree with reducing dose to 12.5 mg twice daily. 2. Paroxysmal atrial fibrillation, currently sinus bradycardia and appropriately anticoagulated with Coumadin. 3. Recent left pontine cerebrovascular accident status post TPA. 4. Ischemic cardiomyopathy with compensated heart failure. 5. History of chronic coronary artery disease with prior coronary artery bypass grafting x3 -- minimally elevated troponins do not represent acute coronary syndrome at this time. 6. Chronic anemia. 7. Former tobacco abuse. PLAN AND RECOMMENDATIONS: Continue metoprolol tartrate 12.5 mg twice daily. The patient may be transitioned to Toprol-XL 25 mg daily at the time of discharge. Continue Coumadin for goal INR 2.0-3.0. Other cardiovascular medications will be continued as previously ordered. No further inpatient cardiac testing at this time. 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 Thank you for allowing me to take part in the care of your patient.
--- NOTE | 2016-11-01 18:20 | Progress Note ---
Internal Med Progress Note Date of Service: Nov 01, 2016. Provider Documentation: patient is mostly aphasic can tell his name seems comfortable denies any pain nods yes for doing fine afebrile Exam: General-alert and awake. Not in distress ENT-normal hearing Neck-no neck masses Lungs-cta b/l no wheezing or crackles Heart-s1 and s2 heard regular rhythm no murmurs Abdomen-soft bowel sounds present non tender no distension Extremities-no edema no erythema Neuro-alert and awake. aphasia right sided weakness ASSESSMENT & PLAN: 1. Bradycardia symptomatic? CR as low as 40 at rehabilitation facility following fall from bed seen by cardiology and advised to continue low dose b marion echo unremarkable will monitor. 2. Hx PAF, px NSR, bradycardic INR therapeutic. 3. troponin very mild elevation. possibly from mildly BP elevation following the fall. stable 4. Chronic systolic heart failure secondary to ischemic cardiomyopathy. EF 40- 44% not on lasix. stable. 5. History of coronary artery disease, status post coronary artery bypass grafting, on statin and b marion. 6. Recent cerebrovascular accident, status post TPA. on Coumadin.pt/ot plan for rehab. 7. Anemia, decreasing hemoglobin following recent confinement Hemoglobin initially 14 during [facility] confinement down to 11 on discharge no obvious source of bleeding for now .Hemepositive. hb stable in 11. will consult GI for any recommendations. 8. History of peripheral vascular disease. 9. Past tobacco abuse. DVT PROPHYLAXIS on Coumadin DISPOSITION monitor in tele transfer back to [facility] Wednesday if no further intervention planned Vital Signs: Date Time Temp Pulse Resp B/P (MAP) Pulse Ox O2 Delivery O2 Flow Rate FiO2 11/01/16 16:00 Room Air 11/01/16 15:02 36.8 53 16 138/83 (101) 93 Room Air 136/82 (100) 11/01/16 12:00 Room Air 11/01/16 11:28 37.0 57 20 135/68 (90) 98 Room Air 11/01/16 08:00 Room Air 11/01/16 07:35 37.1 51 18 134/69 (90) 95 Room Air 11/01/16 04:07 36.4 48 18 122/68 (86) 98 Room Air 11/01/16 04:00 Room Air 11/01/16 00:01 36.4 51 14 110/60 (77) 98 Room Air 11/01/16 00:00 Room Air 10/31/16 20:00 Room Air 10/31/16 19:30 36.9 52 20 113/73 (86) 92 Room Air Lab Results: Results Past 24 Hours Test 11/01/16 03:21 11/01/16 05:58 Range/Units Stool Occult Blood POSITIVE NEGATIVE White Blood Count 10.81 4.8-10.8 K/uL Red Blood Count 3.51 4.7-6.1 M/uL Hemoglobin 11.2 14.0-18.0 g/dL Hematocrit 32.4 42-52 % Mean Corpuscular Volume 92.3 80-100 fL Mean Corpuscular Hemoglobin 31.9 25-34 pg Mean Corpuscular Hemoglobin Concent 34.6 32-36 g/dl Platelet Count 251 130-400 K/uL Mean Platelet Volume 9.4 7.4-10.4 fL Neutrophils (%) (Auto) 68.3 % Lymphocytes (%) (Auto) 15.5 % Monocytes (%) (Auto) 11.5 % Eosinophils (%) (Auto) 3.3 % Basophils (%) (Auto) 0.2 % Neutrophils # (Auto) 7.38 1.4-6.5 K/uL Lymphocytes # (Auto) 1.68 1.2-3.4 K/uL Monocytes # (Auto) 1.24 0.11-0.59 K/uL Eosinophils # (Auto) 0.36 0-0.5 K/uL Basophils # (Auto) 0.02 0-0.2 K/uL RDW Standard Deviation 44.8 36.4-46.3 fL RDW Coefficient of Variation 13.4 11.5-14.5 % Immature Granulocyte % (Auto) 1.2 % Immature Granulocyte # (Auto) 0.13 0.00-0.02 K/uL Prothrombin Time 26.8 9.0-12.0 SECONDS Prothromb Time International Ratio 2.4 0.9-1.1 Sodium Level 143 136-145 mmol/L Potassium Level 4.0 3.5-5.1 mmol/L Chloride Level 111 98-107 mmol/L Carbon Dioxide Level 29 21-32 mmol/L Anion Gap 3.0 3-11 mmol/L Blood Urea Nitrogen 38 7-18 mg/dl Creatinine 1.10 0.60-1.40 mg/dl Est Creatinine Clear Calc Drug Dose 40.6 ml/min Estimated GFR () 69.1 Estimated GFR (Non- 59.6 BUN/Creatinine Ratio 34.3 10-20 Random Glucose 88 70-99 mg/dl Calcium Level 8.8 8.5-10.1 mg/dl
[2016-11-01] MEDS ORDERED: WARFARIN SOD 5 MG TAB PO ONE (18:30)
[2016-11-01 19:05] VITALS: BP 138/63; PULSE 62; TEMP 36.7; O2SAT 93
[2016-11-02] VITALS (7 sets, daily range): BP systolic 115–128; BP diastolic 65–74; PULSE 44–68; TEMP 36.4–36.6; O2SAT 92–96
[2016-11-02 07:15] LABS: BASO % 0.3 %; BASO ABS # 0.03 K/uL (0-0.2); COMPLETE YES; EOS % 2.5 %; HEMATOCRIT 31.8 % (42-52); IG% 1.3 %; LYMPH % 16.4 %; LYMPH ABS # 1.81 K/uL (1.2-3.4); MEAN CELL VOLUME 92.2 fL (80-100); MEAN CORPUSCULAR HEMOGLOBIN 32.2 pg (25-34); MEAN CORPUSCULAR HGB CONC 34.9 g/dl (32-36); MEAN PLATELET VOLUME 9.7 fL (7.4-10.4); MONO % 9.8 %; NEUT % 69.7 %; PLATELET COUNT 271 K/uL (130-400); RED BLOOD COUNT 3.45 M/uL (4.7-6.1); WHITE BLOOD COUNT 11.02 K/uL (4.8-10.8)
[2016-11-02 07:28] LABS: INR 2.8 (0.9-1.1); PROTHROMBIN TIME (PATIENT) 31.5 SECONDS (9.0-12.0)
[2016-11-02] MEDS: ATORVASTATIN 40 MG TAB PO SCH (08:13)
[2016-11-02] MEDS: FLUOXETINE HCL 20 MG CAP PO SCH (08:14)
[2016-11-02] MEDS: METOPROLOL TARTRATE 25 MG TAB PO SCH (08:14)
--- NOTE | 2016-11-02 13:26 | Gastrointestinal Consultation ---
Gastrointestinal Consultation Date of Consultation: Nov 02, 2016 Attending Physician: Suijt Carpenter Consulting Physician: Cecil Fairchild Reason for Consultation: Heme positive stools History of Present Illness Patient is a 86 year old male taken from rehab facility to ED after noted to be bradycardic w HR 40s-50s. He has aphasia due to recent stroke thus his HPI obtained from his records. He had a L pontine CVA on 10/23/16, initially seen at [facility], given TPA, then transferred to [facility] for further management. He developed Afib w RVR during admission and was started on Coumadin. He was just discharged to rehab on 10/28/16. His admission labs showed anemia w Hgb of 11, previously 14. He tested heme positive stools but no signs of GI bleeding such as hematemesis or melena/rectal bleeding since admission. INR been <3 since admission. Currently on Coumadin 5mg daily still. Past Medical/Surgical History Medical Problems: (1) Accident due to mechanical fall without injury Status: Acute (2) Bradycardia Status: Acute Past Medical History: See HPI Hyperlipidemia HTN Past Surgical History: CABG Family History Patient reports no known family medical history. Social History Smoking Status: Former Smoker Alcohol Use: none Drug Use: none Housing Status: assisted living Allergies Coded Allergies: No Known Allergies (Unverified , 10/31/16) Current Medications Home Meds and Scripts Medications Dose Route/Sig Max Daily Dose Days Date Category Nitrostat (Nitroglycerin) 0.4 Mg Tab 0.4 Mg UT PRN 10/31/16 Reported Lovenox (Enoxaparin Sodium) 60 Mg/0.6 Ml Inj 60 Mg SQ Q12H 10/31/16 Reported Lipitor (Atorvastatin Calcium) 40 Mg Tab 40 Mg PO DAILY 10/31/16 Reported Fluoxetine (Fluoxetine Hcl (Pmdd)) 20 Mg Cap 20 Mg PO DAILY 10/31/16 Reported Toprol-Xl (Metoprolol Succinate) 25 Mg Tabcr 25 Mg PO BID 10/31/16 Reported Coumadin (Warfarin Sod) 5 Mg Tab 5 Mg PO DAILY 10/31/16 Reported Review of Systems Constitutional: + see HPI (Unable to obtain due to pt's aphasia) Physical Exam Date Time Temp Pulse Resp B/P (MAP) Pulse Ox O2 Delivery O2 Flow Rate FiO2 11/02/16 12:42 36.6 64 16 128/72 (90) 93 Room Air 11/02/16 08:05 36.6 68 16 118/66 (83) 96 Room Air 11/02/16 08:00 Room Air 11/02/16 04:27 36.5 60 20 115/73 (87) 92 Room Air 11/02/16 04:00 Room Air 11/02/16 00:06 36.4 62 18 125/65 (85) 94 Room Air 11/02/16 00:00 Room Air 11/01/16 20:00 Room Air 11/01/16 19:05 36.7 62 20 138/63 (88) 93 Room Air 11/01/16 16:00 Room Air 11/01/16 15:02 36.8 53 16 138/83 (101) 93 Room Air 136/82 (100) General Appearance: no apparent distress Eyes: normal inspection, PERRL, EOMI Neck: supple, no JVD, trachea midline Respiratory/Chest: no respiratory distress, no accessory muscle use, + decreased breath sounds Cardiovascular: regular rate, rhythm, no gallop, no murmur Abdomen: normal bowel sounds, non tender, soft Neurologic/Psych: + pertinent finding (Aphasia) Skin: normal color, warm/dry, no rash Laboratory Results Last 24 Hours Test 11/02/16 06:45 White Blood Count 11.02 K/uL Red Blood Count 3.45 M/uL Hemoglobin 11.1 g/dL Hematocrit 31.8 % Mean Corpuscular Volume 92.2 fL Mean Corpuscular Hemoglobin 32.2 pg Mean Corpuscular Hemoglobin Concent 34.9 g/dl Platelet Count 271 K/uL Mean Platelet Volume 9.7 fL Neutrophils (%) (Auto) 69.7 % Lymphocytes (%) (Auto) 16.4 % Monocytes (%) (Auto) 9.8 % Eosinophils (%) (Auto) 2.5 % Basophils (%) (Auto) 0.3 % Neutrophils # (Auto) 7.69 K/uL Lymphocytes # (Auto) 1.81 K/uL Monocytes # (Auto) 1.08 K/uL Eosinophils # (Auto) 0.27 K/uL Basophils # (Auto) 0.03 K/uL RDW Standard Deviation 44.9 fL RDW Coefficient of Variation 13.5 % Immature Granulocyte % (Auto) 1.3 % Immature Granulocyte # (Auto) 0.14 K/uL Prothrombin Time 31.5 SECONDS Prothromb Time International Ratio 2.8 Impression Patient is a 86 year old male w hx of recent L pontine CVA s/p TPA; Afib on Coumadin seen for heme positive stools. No s/s of [place] GI bleeding. Hgb stable at 11 since admission. Plan - No plans for for GI workup such as endoscopies at this point. - Monitor H/H and transfuse prn. - DC back to rehab per primary team. ATTESTATION: I have performed a history and physical examination of this patient and reviewed the electronic record. Specifically, on physical examination there is no sign of active bleeding and the abdomen is not tender. I have discussed the case with FILIBERTO Vizcarra. The above note reflects my findings, conclusions , and recommendations. Cecil Fairchild MD
--- NOTE | 2016-11-02 14:03 | Cardiology Follow-Up ---
Subjective General Date of Service: Nov 02, 2016. Pt evaluation today including: conversation w/ patient, physical exam, chart review, lab review, review of studies, conversation w/ economics consultant, review of inpatient medication list History of Present Illness The patient is a 86 year old male seen in follow-up. Patient is a phasic secondary to cerebrovascular accident. No recurrent atrial fibrillation on telemetry. PVCs, ventricular bigeminy, and sinus bradycardia noted on telemetry. No changes overnight per discussion with nursing and hospitalist. Allergies Coded Allergies: No Known Allergies (Unverified , 10/31/16) Social History Smoking Status: Former Smoker Problem List Medical Problems: (1) Accident due to mechanical fall without injury Status: Acute (2) Bradycardia Status: Acute Review of Systems Respiratory: No cough, No shortness of breath, No dyspnea at rest Cardiac: No chest pain, No orthopnea, No edema, No palpitations Physical Exam Vital Signs Last Vital Signs Documentation Date Time Temp Pulse Resp B/P (MAP) Pulse Ox O2 Delivery O2 Flow Rate FiO2 11/02/16 12:42 36.6 64 16 128/72 (90) 93 Room Air Physical Exam Constitutional: General Apperance: well-nourished Level of Distress: NAD Neck: supple, trachea midline Lungs: Auscultation: breath sounds normal, no wheezing, no rales/crackles, no rhonchi Cardiovascular: Heart Auscultation: RRR, normal S1, normal S2, no murmurs, I/ FRANCHESCA Abdomen: Inspection & Palpation: soft, non-distended, no tenderness, guarding & rebound Extremities: no cyanosis, no edema, no clubbing, no ulcers Neurologic: Cranial Nerves: pertinent finding (aphasia with right sided hemiparesis) Assessment and Plan Assessment and Plan FINAL IMPRESSION: 1. Sinus bradycardia with occasional premature ventricular complexes, as well as periods of ventricular bigeminy. -No indication for pacemaker at this time 2. Paroxysmal atrial fibrillation, currently sinus bradycardia and appropriately anticoagulated with Coumadin. 3. Recent left pontine cerebrovascular accident status post TPA. 4. Ischemic cardiomyopathy with compensated heart failure. 5. History of chronic coronary artery disease with prior coronary artery bypass grafting x3 -- minimally elevated troponins do not represent acute coronary syndrome at this time. 6. Chronic anemia. 7. Former tobacco abuse. PLAN AND RECOMMENDATIONS: Recommend continuing low dose beta marion therapy with recent diagnosis of paroxysmal atrial fibrillation as well as history of ischemic cardio myopathy and coronary artery disease. Recommendations discussed with hospitalist. There is no indication for pacemaker implantation at this time. No further inpatient cardiac testing recommended. I will sign off at this time. Recommend 2 week outpatient cardiology follow-up with Dr. Lassiter in [place]. Laboratory Results Last 24 Hours Test 11/02/16 06:45 White Blood Count 11.02 K/uL Red Blood Count 3.45 M/uL Hemoglobin 11.1 g/dL Hematocrit 31.8 % Mean Corpuscular Volume 92.2 fL Mean Corpuscular Hemoglobin 32.2 pg Mean Corpuscular Hemoglobin Concent 34.9 g/dl Platelet Count 271 K/uL Mean Platelet Volume 9.7 fL Neutrophils (%) (Auto) 69.7 % Lymphocytes (%) (Auto) 16.4 % Monocytes (%) (Auto) 9.8 % Eosinophils (%) (Auto) 2.5 % Basophils (%) (Auto) 0.3 % Neutrophils # (Auto) 7.69 K/uL Lymphocytes # (Auto) 1.81 K/uL Monocytes # (Auto) 1.08 K/uL Eosinophils # (Auto) 0.27 K/uL Basophils # (Auto) 0.03 K/uL RDW Standard Deviation 44.9 fL RDW Coefficient of Variation 13.5 % Immature Granulocyte % (Auto) 1.3 % Immature Granulocyte # (Auto) 0.14 K/uL Prothrombin Time 31.5 SECONDS Prothromb Time International Ratio 2.8
--- NOTE | 2016-11-02 14:14 | Progress Note ---
Internal Med Progress Note Date of Service: Nov 02, 2016. Provider Documentation: patient is mostly aphasic can tell his name comfortable denies any pain by nodding head ok for discharge Exam: General-alert and awake. Not in distress ENT-normal hearing Neck-no neck masses Lungs-cta b/l no wheezing or crackles Heart-s1 and s2 heard regular rhythm no murmurs Abdomen-soft bowel sounds present non tender no distension Extremities-no edema no erythema Neuro-alert and awake. aphasia right sided weakness ASSESSMENT & PLAN: 1. Bradycardia symptomatic? CR as low as 40 at rehabilitation facility following fall from bed seen by cardiology and advised to continue low dose b marion to avoid rebound tachycardia with holding parameters : to hold for HR<50 or SBP<100. NO INDICATION FOR PACE MAKER PER CARDIOLOGY echo unremarkable stable plan to discharge to [facility] today FOLLOWUP WITH CARDIOLOGY IN [place] IN 2 WEEKS. CHEST XRAY PA/LATERAL VIEW OR CT SCAN IN 1-2 WEEKS FOR POSSIBLE LUNG NODULE IN LEFT LOWER LUNG 2. Hx PAF, px NSR, bradycardic INR therapeutic.on low dose b marion will d/c on coumadin 3mg daily monitor pt/inr daily at [facility] and adjust Coumadin dosing 3. troponin very mild elevation. possibly from mildly BP elevation following the fall. stable 4. Chronic systolic heart failure secondary to ischemic cardiomyopathy. EF 40- 44% not on Lasix. stable. 5. History of coronary artery disease, status post coronary artery bypass grafting, on statin and b marion. 6. Recent cerebrovascular accident, status post TPA. on Coumadin.pt/ot plan for rehab. 7. Anemia, decreasing hemoglobin following recent confinement Hemoglobin initially 14 during C confinement down to 11 on discharge no obvious source of bleeding for now .But Hemepositive. hb stable in 11 since admission. Consulted GI - no plan for scopes as pt recently had stroke and hb stable at 11 and no signs of overt GI bleeding. to transfuse as needed f/u cbc in 5-7 days with pcp 8. History of peripheral vascular disease. 9. LUNG NODULE? Past tobacco abuse. CHEST XRAY PA/LATERAL VIEW OR CT SCAN IN 1-2 WEEKS FOR POSSIBLE LUNG NODULE IN LEFT LOWER LUNG Discharged to [facility] Vital Signs: Date Time Temp Pulse Resp B/P (MAP) Pulse Ox O2 Delivery O2 Flow Rate FiO2 11/02/16 12:42 36.6 64 16 128/72 (90) 93 Room Air 11/02/16 12:00 Room Air 11/02/16 08:05 36.6 68 16 118/66 (83) 96 Room Air 11/02/16 08:00 Room Air 11/02/16 04:27 36.5 60 20 115/73 (87) 92 Room Air 11/02/16 04:00 Room Air 11/02/16 00:06 36.4 62 18 125/65 (85) 94 Room Air 11/02/16 00:00 Room Air 11/01/16 20:00 Room Air 11/01/16 19:05 36.7 62 20 138/63 (88) 93 Room Air 11/01/16 16:00 Room Air 11/01/16 15:02 36.8 53 16 138/83 (101) 93 Room Air 136/82 (100) Lab Results: Results Past 24 Hours Test 11/02/16 06:45 Range/Units White Blood Count 11.02 4.8-10.8 K/uL Red Blood Count 3.45 4.7-6.1 M/uL Hemoglobin 11.1 14.0-18.0 g/dL Hematocrit 31.8 42-52 % Mean Corpuscular Volume 92.2 80-100 fL Mean Corpuscular Hemoglobin 32.2 25-34 pg Mean Corpuscular Hemoglobin Concent 34.9 32-36 g/dl Platelet Count 271 130-400 K/uL Mean Platelet Volume 9.7 7.4-10.4 fL Neutrophils (%) (Auto) 69.7 % Lymphocytes (%) (Auto) 16.4 % Monocytes (%) (Auto) 9.8 % Eosinophils (%) (Auto) 2.5 % Basophils (%) (Auto) 0.3 % Neutrophils # (Auto) 7.69 1.4-6.5 K/uL Lymphocytes # (Auto) 1.81 1.2-3.4 K/uL Monocytes # (Auto) 1.08 0.11-0.59 K/uL Eosinophils # (Auto) 0.27 0-0.5 K/uL Basophils # (Auto) 0.03 0-0.2 K/uL RDW Standard Deviation 44.9 36.4-46.3 fL RDW Coefficient of Variation 13.5 11.5-14.5 % Immature Granulocyte % (Auto) 1.3 % Immature Granulocyte # (Auto) 0.14 0.00-0.02 K/uL Prothrombin Time 31.5 9.0-12.0 SECONDS Prothromb Time International Ratio 2.8 0.9-1.1
[2016-11-02] MEDS ORDERED: WARF3TAB PO (14:15)
[2016-11-02] MEDS ORDERED: LPR25 PO (14:15)
--- NOTE | 2016-11-02 14:20 | Discharge Instructions ---
Discharge Instructions Date of Service Nov 02, 2016. Admission Reason for Admission: Bradycardia Discharge Discharge Diagnosis / Problem: bradycardia, fall Discharge Goals Goal(s): Decrease discomfort, Improve function Activity Recommendations Activity Level: Up [place], Assistance Required Therapies: Physical Therapy, Occupational Therapy, Speech Therapy . Additional Information Patient informed of condition: Yes Advance Directives: Yes DNR: Yes Level of Care: Acute Rehab Communicable Disease: No Prognosis: Stable Lopez Catheter: No Instructions / Follow-Up Instructions / Follow-Up FOLLOWUP WITH FAMILY DOCTOR IN ONE WEEK. FOLLOWUP WITH CARDIOLOGY Dr. Lassiter in [place] IN 2 WEEKS. LAB: CBC IN 5-7 DAYS AND FOLLOW RESULTS WITH FAMILY DOCTOR. LAB: PT/INR DAILY AND ADJUST COUMADIN DOSING. CHEST XRAY PA/LATERAL VIEW OR CT SCAN IN 1-2 WEEKS FOR POSSIBLE LUNG NODULE IN LEFT LOWER LUNG MEDICATION CHANGE: CHANGED TOPROL XL TO LOPRESSOR 12.5MG PO TWICE DAILY : TO HOLD FOR HR<50 OR SBP< 100. CHANGED COUMADIN TO 3MG DAILY AND TO FOLLOW PT/INR DAILY AND TO ADJUST COUMADIN DOSE. TO FOLLOWUP WITH COUMADIN CLINIC ONCE DISCHARGED FROM [facility]. Current Hospital Diet Patient's current hospital diet: AHA Diet (Heart Healthy) Discharge Diet Recommended Diet: AHA Diet (Heart Healthy) Diet Texture: Mechanical Soft (ground) (UNTIL EVALUATED BY SPEECH THERAPY) Pending Studies Studies pending at discharge: no Physician Orders On Transfer Special Precautions: FALL AND ASPIRATION PRECAUTIONS Vital Signs: EVERY 8HRS Medical Emergencies . Who to Call and When: Medical Emergencies: If at any time you feel your situation is an emergency, please call 911 immediately. . Non-Emergent Contact Non-Emergency issues call your: Primary Care Provider . . "Provider Documentation" section prepared by Sujit Carpenter. . Core Measure Problem Core Measures: None
--- NOTE | 2016-11-02 14:24 | Discharge Summary ---
Discharge Summary Date of Service Nov 02, 2016. 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 Procedures: CXR: 1. Pulmonary vascular congestion without overt edema. 2. Moderate enlargement of the cardiac silhouette. 3. Possible 2.7 cm peripheral opacity within the left lower lung. This may reflect artifact, minimal airspace opacity, atelectasis, post surgical change or pulmonary nodule. Follow-up PA and lateral chest radiographs are recommended. CT HEAD: 1. No acute intracranial findings. 2. No calvarial fracture. ECHO: Ejection Fraction = 50-55%. * There is a moderate sized wall motion abnormality involving the inferior septum, anterior septum and apical inferior wall with hypokinesis to akinesis of the segments. * Aortic valve sclerosis moderate, without significant aortic valvular stenosis. * There is moderate mitral annular calcification. * There is mild mitral regurgitation. * There is mild tricuspid regurgitation. Consultations: CARDIOLOGY Medication Reconciliation New Medications: Warfarin Sodium (Coumadin) 3 Mg Tab 3 MG PO DAILY, #30 TAB 1 Refill Metoprolol Tartrate (Lopressor) 25 Mg Tab 12.5 MG PO BID for 30 Days, #30 TAB 1 Refill Continued Medications: Atorvastatin (Lipitor) 40 Mg Tab 40 MG PO DAILY Fluoxetine Hcl (Pmdd) (Fluoxetine) 20 Mg Cap 20 MG PO DAILY Nitroglycerin (Nitrostat) 0.4 Mg Tab 0.4 MG UT PRN Discontinued Medications: Enoxaparin (Lovenox) 60 Mg/0.6 Ml Inj 60 MG SQ Q12H, SYR Metoprolol Succ (Toprol Xl) (Toprol-Xl) 25 Mg Tabcr 25 MG PO BID, #30 TAB Warfarin Sod (Coumadin) 5 Mg Tab 5 MG PO DAILY Admission Information HPI (per Admitting provider): History obtained from records. Unable to obtain history from the patient secondary to aphasia, possible hearing impairment. 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 Last 10/23/2016, the patient was noted to have trouble with speaking, could not get up, had right-sided weakness. Patient was brought to [facility], given TPA for CVA. Transferred to [facility] for possible interventional management. MRI of the brain showed left paramedian isabel ischemic infarct. Patient developed AFib with RVR during admission. Started on Lopressor, Lovenox-Coumadin bridge. 2D echo showed large sized septal, anteroseptal and inferior wall motion abnormalities with hypokinesis, reduced EF 44%. Patient discharged to rehab last 10/28/2016. As per rehab notes, the patient slid from bed today. No witnessed syncopal events. Patient denies chest pain, shortness of breath. Patient noted to be bradycardic at 40. Last night as per rehab staff, heart rate 50s. Patient brought to the Emergency Room, currently comfortable. Physical Exam (per Admitting): VITAL SIGNS: Blood pressure was noted to be 147/58, pulse rate 49, RR 18, temperature 36.9, sats 92 on room air. GENERAL: Noted to be comfortable, no respiratory distress, aphasic. SKIN: Pallor. HEENT: Pale palpebral conjunctivae. Dry mucosa. Facial asymmetry. NECK: No JVD. Supple. CHEST: Decreased effort. HEART: Bradycardic. ABDOMEN: Soft. NT EXTREMITIES: No edema, no tenderness. NEUROLOGIC: Aphasia, dense hemiparesis R, acial asymmetry. Otherwise, no gross focality, Hospital Course 1. Bradycardia symptomatic? CR as low as 40 at rehabilitation facility following fall from bed seen by cardiology and advised to continue low dose b marion to avoid rebound tachycardia with holding parameters : to hold for HR<50 or SBP<100. NO INDICATION FOR PACE MAKER PER CARDIOLOGY echo unremarkable stable plan to discharge to [facility] FOLLOWUP WITH CARDIOLOGY IN [place] IN 2 WEEKS. CHEST XRAY PA/LATERAL VIEW OR CT SCAN IN 1-2 WEEKS FOR POSSIBLE LUNG NODULE IN LEFT LOWER LUNG 2. Hx PAF, px NSR, bradycardic INR therapeutic.on low dose b marion will d/c on coumadin 3mg daily monitor pt/inr daily at [facility] and adjust Coumadin dosing 3. troponin very mild elevation. possibly from mildly BP elevation following the fall. stable 4. Chronic systolic heart failure secondary to ischemic cardiomyopathy. EF 40- 44% not on Lasix. stable. 5. History of coronary artery disease, status post coronary artery bypass grafting, on statin and b marion. 6. Recent cerebrovascular accident, status post TPA. on Coumadin.pt/ot plan for rehab. 7. Anemia, decreasing hemoglobin following recent confinement Hemoglobin initially 14 during C confinement down to 11 on discharge no obvious source of bleeding for now .But Hemepositive. hb stable in 11 since admission. Consulted GI - no plan for scopes as pt recently had stroke and hb stable at 11 and no signs of overt GI bleeding. to transfuse as needed f/u cbc in 5-7 days with pcp 8. History of peripheral vascular disease. 9. LUNG NODULE? Past tobacco abuse. CHEST XRAY PA/LATERAL VIEW OR CT SCAN IN 1-2 WEEKS FOR POSSIBLE LUNG NODULE IN LEFT LOWER LUNG Discharged to [facility] Total time spent on discharge = 45MINUTES This includes examination of the patient, discharge planning, medication reconciliation, and communication with other providers. Discharge Instructions Discharge Instructions Date of Service Nov 02, 2016. Admission Reason for Admission: Bradycardia Discharge Discharge Diagnosis / Problem: bradycardia, fall Discharge Goals Goal(s): Decrease discomfort, Improve function Activity Recommendations Activity Level: Up [place], Assistance Required Therapies: Physical Therapy, Occupational Therapy, Speech Therapy . Additional Information Patient informed of condition: Yes Advance Directives: Yes DNR: Yes Level of Care: Acute Rehab Communicable Disease: No Prognosis: Stable Lopez Catheter: No Instructions / Follow-Up Instructions / Follow-Up FOLLOWUP WITH FAMILY DOCTOR IN ONE WEEK. FOLLOWUP WITH CARDIOLOGY Dr. Lassiter in [place] IN 2 WEEKS. LAB: CBC IN 5-7 DAYS AND FOLLOW RESULTS WITH FAMILY DOCTOR. LAB: PT/INR DAILY AND ADJUST COUMADIN DOSING. CHEST XRAY PA/LATERAL VIEW OR CT SCAN IN 1-2 WEEKS FOR POSSIBLE LUNG NODULE IN LEFT LOWER LUNG MEDICATION CHANGE: CHANGED TOPROL XL TO LOPRESSOR 12.5MG PO TWICE DAILY : TO HOLD FOR HR<50 OR SBP< 100. CHANGED COUMADIN TO 3MG DAILY AND TO FOLLOW PT/INR DAILY AND TO ADJUST COUMADIN DOSE. TO FOLLOWUP WITH COUMADIN CLINIC ONCE DISCHARGED FROM [facility]. Current Hospital Diet Patient's current hospital diet: AHA Diet (Heart Healthy) Discharge Diet Recommended Diet: AHA Diet (Heart Healthy) Diet Texture: Mechanical Soft (ground) (UNTIL EVALUATED BY SPEECH THERAPY) Pending Studies Studies pending at discharge: no Physician Orders On Transfer Special Precautions: FALL AND ASPIRATION PRECAUTIONS Vital Signs: EVERY 8HRS Medical Emergencies . Who to Call and When: Medical Emergencies: If at any time you feel your situation is an emergency, please call 911 immediately. . Non-Emergent Contact Non-Emergency issues call your: Primary Care Provider . . "Provider Documentation" section prepared by Sujit Carpenter. . Core Measure Problem Core Measures: None
[2016-11-02] MEDS ORDERED: WARFARIN SOD 5 MG TAB PO SCH (16:00)
== END 2016-11-02 17:40 ==
LOC: EDBD 00:41 → C.EDB 00:43 → C.2T 05:53 → ENRESERV 06:15
PROVIDERS: ADMIT Internal Medicine; ATTEND Internal Medicine
DX: R00.1 Bradycardia, unspecified (principal); I25.10 Atherosclerotic heart disease of native coronary artery without angina pectoris; I11.0 Hypertensive heart disease with heart failure; I50.22 Chronic systolic (congestive) heart failure; I25.5 Ischemic cardiomyopathy; I48.0 Paroxysmal atrial fibrillation; I45.10 Unspecified right bundle-branch block; E78.5 Hyperlipidemia, unspecified; R91.1 Solitary pulmonary nodule; D64.9 Anemia, unspecified; I73.9 Peripheral vascular disease, unspecified; Z87.891 Personal history of nicotine dependence; Z86.73 Personal history of transient ischemic attack (TIA), and cerebral infarction without residual deficits; Z95.1 Presence of aortocoronary bypass graft; Z79.01 Long term (current) use of anticoagulants; Z79.899 Other long term (current) drug therapy; W18.30XA Fall on same level, unspecified, initial encounter